=== PATIENT | female | born 1960 | race African-American/Black ===

== ENCOUNTER 2016-12-03 20:47 | Emergency (ER) | payer OTHER ==
[~2016-12-03] VITALS: Ht 170.2 cm; Wt 54.4 kg
[2016-12-03] MEDS ORDERED: SODIUM CHLORIDE 0.9% 1,000 ML IV ONE ×2 (21:15→23:45)
[2016-12-03] MEDS ORDERED: PROCHLORPERAZINE EDISYLATE 5 MG/ML 2ML VIAL IV ONE (21:15)
[2016-12-03 21:28] LABS: Basophils # (auto) 0 uL; Basophils % (auto) 0.5 % (0.0-2.0); Eosinophils # (auto) 0 uL; Eosinophils % (auto) 0.1 % (0.0-7.0); Hematocrit 39.5 % (36.0-46.0); Lymphocytes # (auto) 1.4 uL; Lymphocytes % (auto) 19.4 % (10.0-50.0); Mean Corpuscular Hemoglobin 27.6 pg (28.0-32.0); Mean Corpuscular Hgb Conc. 32.8 g/dL (32.0-36.0); Mean Platelet Volume 8.6 fL (7.4-10.4); Monocytes # (auto) 0.2 uL; Monocytes % (auto) 2.1 % (0.0-12.0); Neutrophils # (auto) 5.7 uL; Neutrophils % (auto) 77.9 % (37.0-80.0); Platelet Count (auto) 403 10^3/uL (140-450); White Blood Cell 7.3 10^3/uL (4.4-10.8)
[2016-12-03 22:19] LABS: Potassium 3.5 mmol/L (3.5-5.1)
[2016-12-03 22:26] LABS: Albumin 4.9 g/dL (3.4-5.0); BUN/Creatinine Ratio 10.1; Calcium 9.6 mg/dL (8.5-10.1)
[2016-12-03 22:29] LABS: Bilirubin, Total 0.7 mg/dL (0.2-1.0)
[2016-12-03] MEDS ORDERED: FAMOTIDINE (10MG/ML) 2ML VL IV ONE (23:45)
[2016-12-03] MEDS ORDERED: NALBUPHINE HCL 10 MG/1ml INJECTION IV ONE (23:45)
[2016-12-04] MEDS ORDERED: ONDANSETRON HCL 4 MG/2 ML VIAL ONE (00:15)
[2016-12-04 00:41] LABS: Urine RBC None Seen /hpf (0 - 4)
[2016-12-04] MEDS ORDERED: ONDANSETRON HCL 4 MG/2 ML VIAL IV ONE (00:45)
[2016-12-04 00:56] LABS: Urine Bilirubin Negative (Negative); Urine Blood Negative /uL (Negative); Urine Color Yellow (Yellow); Urine Glucose TRACE mg/dL (Normal); Urine Nitrite Negative (Negative); Urine Squamous Epithelial Cell FEW /hpf (<5); Urine Urobilinogen Normal (Negative)
[2016-12-04 01:10] LABS: Urine Ketone 1+ (Negative)
[2016-12-04 02:25] VITALS: BP 200/124
[2016-12-04] MEDS ORDERED: PROMETHAZINE HCL 25 MG/ML 1ML ONE (03:27)
[2016-12-04] MEDS ORDERED: PROMETHAZINE HCL 25 MG/ML 1ML IV ONE (03:45)
== END 2016-12-04 06:18 | disposition home or self-care (01) ==
LOC: EDBD 20:47 → ER 20:55
DX: K52.9 Noninfective gastroenteritis and colitis, unspecified (principal); F19.10 Other psychoactive substance abuse, uncomplicated
CPT/HCPCS: 36415; 74176; 80053; 81001; 82150; 83690; 85025; 93005; 96361; 96374; 96375; 99285; G0434; J0780; J2300; J2405; J2550; J3490; J7030

== ENCOUNTER 2016-12-06 15:32 | Emergency (ER) | payer OTHER ==
[~2016-12-06] VITALS: Ht 154.9 cm; Wt 54.4 kg
[2016-12-06] MEDS ORDERED: ONDANSETRON ODT 4 MG TAB PO ONE (16:30)
[2016-12-06] MEDS ORDERED: NALBUPHINE HCL 10 MG/1ml INJECTION IV ONE (18:45)
[2016-12-06 20:23] LABS: Basophils # (auto) 0 uL; Basophils % (auto) 0.5 % (0.0-2.0); Eosinophils # (auto) 0 uL; Eosinophils % (auto) 0.3 % (0.0-7.0); Hemoglobin 13.1 g/dL (12.2-16.2); Lymphocytes # (auto) 1.7 uL; Lymphocytes % (auto) 17.5 % (10.0-50.0); Mean Corpuscular Hemoglobin 27.3 pg (28.0-32.0); Mean Corpuscular Hgb Conc. 32.9 g/dL (32.0-36.0); Mean Corpuscular Volume 82.9 fL (80.0-100.0); Monocytes # (auto) 0.7 uL; Monocytes % (auto) 6.7 % (0.0-12.0); Neutrophils # (auto) 7.4 uL; Platelet Count (auto) 381 10^3/uL (140-450); Red Cell Distribution Width 14.8 % (11.6-16.0); White Blood Cell 9.8 10^3/uL (4.4-10.8)
[2016-12-06 20:42] VITALS: BP 119/77
[2016-12-06 20:43] LABS: Albumin 4.5 g/dL (3.4-5.0); Anion Gap 9 (5-15); Aspartate Aminotransferase 13 U/L (15-37); BUN/Creatinine Ratio 13.7; Blood Urea Nitrogen 17 mg/dL (7-18); Calcium 8.8 mg/dL (8.5-10.1); Carbon Dioxide 28 mmol/L (21-32); Chloride 102 mmol/L (98-107); GFR African American 57 mL/min; GFR Non-African American 47 mL/min; Glucose 104 mg/dL (74-106); Potassium 3.4 mmol/L (3.5-5.1); Sodium 139 mmol/L (136-145)
[2016-12-06 20:48] LABS: Alkaline Phosphatase 59 U/L (45-117); Bilirubin, Total 0.6 mg/dL (0.2-1.0); Total Protein 8.3 g/dL (6.4-8.2)
[2016-12-06] MEDS ORDERED: POTASSIUM CHL 20 Meq TABLET PO ONE (21:00)
== END 2016-12-06 21:46 | disposition home or self-care (01) ==
LOC: ER 15:32 → EDBD 15:32 → ER 21:46
DX: K21.9 Gastro-esophageal reflux disease without esophagitis (principal)
CPT/HCPCS: 36415; 71020; 76705; 80053; 84484; 85025; 93005; 96374; 99285; J2300; Q0162

== ENCOUNTER 2017-01-18 11:19 | Emergency (ER) | payer OTHER ==
[~2017-01-18] VITALS: Ht 157.5 cm; Wt 59.0 kg
[2017-01-18 12:07] VITALS: BP 143/85
== END 2017-01-18 12:37 | disposition home or self-care (01) ==
LOC: ER 12:02
DX: H66.92 Otitis media, unspecified, left ear (principal)

== ENCOUNTER 2017-01-31 09:25 | Inpatient (IN) | payer OTHER ==
[~2017-01-31] VITALS: Ht 157.5 cm; Wt 58.7 kg
[2017-01-31 10:00] LABS: Basophils # (auto) 0 uL; Basophils % (auto) 0.2 % (0.0-2.0); Eosinophils # (auto) 0 uL; Hematocrit 40.9 % (36.0-46.0); Hemoglobin 13.6 g/dL (12.2-16.2); Lymphocytes # (auto) 1.3 uL; Lymphocytes % (auto) 13.6 % (10.0-50.0); Mean Corpuscular Hemoglobin 27.2 pg (28.0-32.0); Mean Corpuscular Hgb Conc. 33.3 g/dL (32.0-36.0); Mean Corpuscular Volume 81.6 fL (80.0-100.0); Mean Platelet Volume 8.2 fL (7.4-10.4); Monocytes # (auto) 0.2 uL; Monocytes % (auto) 1.8 % (0.0-12.0); Neutrophils % (auto) 84.4 % (37.0-80.0); Platelet Count (auto) 461 10^3/uL (140-450); Red Cell Distribution Width 15.6 % (11.6-16.0); White Blood Cell 9.5 10^3/uL (4.4-10.8)
[2017-01-31 10:19] LABS: Albumin 4.8 g/dL (3.4-5.0); BUN/Creatinine Ratio 11.6; Bilirubin, Total 0.8 mg/dL (0.2-1.0); Calcium 9.9 mg/dL (8.5-10.1); Potassium 3.6 mmol/L (3.5-5.1); Total Protein 9.4 g/dL (6.4-8.2)
[2017-01-31] MEDS ORDERED: PANTOPRAZOLE SODIUM 40 MG/10 ML VIAL IV ONE (11:15)
[2017-01-31] MEDS ORDERED: LIDOCAINE VISCOUS 2% 15ML UD PO ONE (11:15)
[2017-01-31] MEDS ORDERED: ALUM & MAG HYDROX-SIMETH LIQ(MAALOX) 30 ML PO ONE (11:15)
[2017-01-31] MEDS ORDERED: cloNIDine HCL 0.1 MG TAB PO ONE (11:15)
[2017-01-31] MEDS ORDERED: DONNATAL 5ml ORAL Elix (BELLADONNA ALK-PHENOBARB) PO ONE (11:15)
[2017-01-31] MEDS ORDERED: HYDROmorphone HCL 2 MG/ML VL IV ONE (11:15)
[2017-01-31] MEDS ORDERED: ONDANSETRON HCL 4 MG/2 ML VIAL IV ONE (11:15)
[2017-01-31] MEDS ORDERED: SODIUM CHLORIDE 0.9% 1,000 ML IV ONE (11:15)
[2017-01-31 11:32] LABS: Urine Bilirubin Negative (Negative); Urine Blood TRACE /uL (Negative); Urine Color Yellow (Yellow); Urine Glucose Normal (Normal); Urine Hyaline Cast FEW /lpf (0 - 2); Urine Ketone Negative (Negative); Urine Mucus FEW (None Seen); Urine Nitrite Negative (Negative); Urine RBC 3 /hpf (0 - 4); Urine Squamous Epithelial Cell FEW /hpf (<5); Urine Urobilinogen Normal (Negative)
[2017-01-31 11:47] LABS: Amylase 92 U/L (25-115)
[2017-01-31] MEDS ORDERED: ACETAMINOPHEN 500 MG TAB PO PRN (13:45)
[2017-01-31] MEDS ORDERED: LORazepam 0.5 MG TAB PO PRN (13:45)
[2017-01-31] MEDS: FAMOTIDINE (10MG/ML) 2ML VL IV SCH (14:23)
[2017-01-31] MEDS: SODIUM CHLORIDE 0.9% 1,000 ML IV SCH (14:30)
[2017-01-31] MEDS ORDERED: MORPHINE SULF INJ 2 MG/ML SYRINGE 1ML IV PRN (14:45)
[2017-01-31] MEDS ORDERED: cefTRIAXone 1GM/50ML D5W 50 ML IV ONE (14:45)
[2017-01-31] MEDS ORDERED: NITROGLYCERIN 0.4 MG SL TAB SL PRN (14:45)
[2017-01-31] MEDS: HYDROcodone-ACET 5/325MG TAB PO PRN ×2 (14:56→21:45)
[2017-01-31 18:10] VITALS: BP 128/88
[2017-01-31] MEDS ORDERED: OMEP20CA5 PO (18:58)
[2017-01-31] MEDS ORDERED: ONDA8TAB6 PO ×2 (18:58→18:59)
[2017-01-31] MEDS ORDERED: NOR5T PO (18:58)
[2017-01-31] MEDS: MORPHINE SULF INJ 2 MG/ML SYRINGE 1ML IV PRN ×2 (19:00→23:45)
[2017-01-31 20:00] VITALS: BP 124/82
[2017-01-31] MEDS: TEMAZEPAM 15 MG CAP PO PRN (21:45)
[2017-01-31 22:00] VITALS: BP 126/82
[2017-01-31 22:13] VITALS: BP 126/82
[2017-02-01] MEDS: FAMOTIDINE (10MG/ML) 2ML VL IV SCH ×2 (00:42→15:11)
[2017-02-01 05:00] VITALS: BP 145/92
[2017-02-01] MEDS: MORPHINE SULF INJ 2 MG/ML SYRINGE 1ML IV PRN (05:05)
[2017-02-01] MEDS: PROMETHAZINE HCL 25 MG/ML 1ML IV PRN ×4 (05:23→20:36)
[2017-02-01] MEDS: SODIUM CHLORIDE 0.9% 1,000 ML IV SCH ×3 (05:24→19:43)
[2017-02-01 07:27] LABS: Albumin 4.2 g/dL (3.4-5.0); BUN/Creatinine Ratio 14.9; Bilirubin, Total 1.1 mg/dL (0.2-1.0); Calcium 8.9 mg/dL (8.5-10.1); Potassium 3.6 mmol/L (3.5-5.1); Total Protein 8.1 g/dL (6.4-8.2)
[2017-02-01 08:00] VITALS: BP 167/113
[2017-02-01 08:25] VITALS: BP_SYST 125; BP_SYST 167; BP_DIAS 113; BP_DIAS 73
[2017-02-01] MEDS: cefTRIAXone 1GM/50ML D5W 50 ML IV SCH (10:02)
[2017-02-01] MEDS: HYDROmorphone HCL 2 MG/ML VL IV PRN ×3 (10:53→20:36)
[2017-02-01 12:22] VITALS: BP 160/89
[2017-02-01 17:46] VITALS: BP 135/86
[2017-02-01 21:03] VITALS: BP 130/84
[2017-02-01] MEDS: TEMAZEPAM 15 MG CAP PO PRN (22:28)
[2017-02-01] MEDS: chlorproMAZINE HCL 25 MG TAB PO PRN (22:28)
[2017-02-02] MEDS: HYDROmorphone HCL 2 MG/ML VL IV PRN ×4 (02:21→20:04)
[2017-02-02] MEDS: FAMOTIDINE (10MG/ML) 2ML VL IV SCH (02:22)
[2017-02-02] MEDS: PROMETHAZINE HCL 25 MG/ML 1ML IV PRN ×4 (02:22→20:04)
[2017-02-02] MEDS: SODIUM CHLORIDE 0.9% 1,000 ML IV SCH ×2 (02:29→17:27)
[2017-02-02 04:38] VITALS: BP 146/92
[2017-02-02] MEDS: cefTRIAXone 1GM/50ML D5W 50 ML IV SCH (07:52)
[2017-02-02] MEDS: chlorproMAZINE HCL 25 MG TAB PO PRN (07:52)
[2017-02-02 08:00] VITALS: BP 132/87
[2017-02-02 09:00] VITALS: BP 132/87
[2017-02-02 13:00] VITALS: BP 130/93
[2017-02-02] MEDS: PANTOPRAZOLE SODIUM 40 MG/10 ML VIAL IV SCH (14:20)
[2017-02-02 17:00] VITALS: BP 152/104
[2017-02-02 21:04] VITALS: BP 138/91
[2017-02-02] MEDS: TEMAZEPAM 15 MG CAP PO PRN (21:48)
[2017-02-03] MEDS: SODIUM CHLORIDE 0.9% 1,000 ML IV SCH ×3 (01:43→23:30)
[2017-02-03] MEDS: PROMETHAZINE HCL 25 MG/ML 1ML IV PRN ×5 (02:54→23:31)
[2017-02-03] MEDS: HYDROmorphone HCL 2 MG/ML VL IV PRN ×5 (02:54→23:31)
[2017-02-03 05:00] VITALS: BP 139/85
[2017-02-03 07:39] VITALS: BP 145/100
[2017-02-03 08:00] VITALS: BP 145/100
[2017-02-03] MEDS: cefTRIAXone 1GM/50ML D5W 50 ML IV SCH (09:47)
[2017-02-03] MEDS: PANTOPRAZOLE SODIUM 40 MG/10 ML VIAL IV SCH (09:47)
[2017-02-03 12:33] VITALS: BP 130/97
[2017-02-03 16:05] VITALS: BP 167/87
[2017-02-03 21:55] VITALS: BP 135/78
[2017-02-03] MEDS: chlorproMAZINE HCL 25 MG TAB PO PRN (23:30)
[2017-02-03] MEDS: PANTOPRAZOLE 40 MG TAB PO SCH (23:36)
[2017-02-04] MEDS: TEMAZEPAM 15 MG CAP PO PRN ×2 (00:08→23:23)
[2017-02-04] MEDS: PROMETHAZINE HCL 25 MG/ML 1ML IV PRN ×4 (04:53→22:08)
[2017-02-04] MEDS: HYDROmorphone HCL 2 MG/ML VL IV PRN ×4 (04:53→22:08)
[2017-02-04 05:26] VITALS: BP 148/108
[2017-02-04 06:37] LABS: Albumin 3.5 g/dL (3.4-5.0); BUN/Creatinine Ratio 8.5; Calcium 8.7 mg/dL (8.5-10.1); Potassium 3.8 mmol/L (3.5-5.1)
[2017-02-04 06:44] LABS: Bilirubin, Total 0.4 mg/dL (0.2-1.0); Total Protein 7.1 g/dL (6.4-8.2)
[2017-02-04 08:00] VITALS: BP 130/86
[2017-02-04 08:24] LABS: INR 0.98 (0.9-1.15); Partial Thromboplastin Time 27.1 sec (22.64-33.71); Prothrombin Time 10.6 sec (9.37-12.3)
[2017-02-04] MEDS ORDERED: SODIUM CHLORIDE LOCK 10 ML ONE (08:29)
[2017-02-04] MEDS ORDERED: LIDOCAINE VISCOUS 2% 15ML UD ONE (08:29)
[2017-02-04] MEDS ORDERED: diphenhdrAMINE HCL 50 MG/1 ML VL ONE (08:29)
[2017-02-04 09:00] VITALS: BP 130/86
[2017-02-04] MEDS: PANTOPRAZOLE 40 MG TAB PO SCH ×2 (10:00→21:40)
[2017-02-04] MEDS: SODIUM CHLORIDE 0.9% 1,000 ML IV SCH ×2 (10:05→17:57)
[2017-02-04 13:00] VITALS: BP 135/70
[2017-02-04] MEDS: MIDAZOLAM HCL 5 MG/ML-1ML VIAL ONE ×3 (14:30→14:37)
[2017-02-04] MEDS: fentaNYL CITRATE 100 MCG/2 ML VL ONE ×2 (14:30→14:33)
[2017-02-04 17:00] VITALS: BP 155/103
[2017-02-04 22:00] VITALS: BP 142/90
[2017-02-05] MEDS: HYDROmorphone HCL 2 MG/ML VL IV PRN ×3 (02:24→11:38)
[2017-02-05] MEDS: PROMETHAZINE HCL 25 MG/ML 1ML IV PRN ×3 (02:25→11:38)
[2017-02-05] MEDS: SODIUM CHLORIDE 0.9% 1,000 ML IV SCH ×2 (03:43→13:43)
[2017-02-05 05:00] VITALS: BP 131/81
[2017-02-05 09:00] VITALS: BP 148/95
[2017-02-05] MEDS: PANTOPRAZOLE 40 MG TAB PO SCH (11:36)
[2017-02-05 13:00] VITALS: BP 154/83
[2017-02-05] MEDS: HYDROcodone-ACET 5/325MG TAB PO PRN (15:50)
[2017-02-05 16:15] VITALS: BP 172/121
== END 2017-02-05 17:15 | disposition home or self-care (01) | DRG 445 ==
LOC: EDBD 09:25 → ER 09:25 → TELE 09:26 → TELE-EAST 17:56 → EAST 02-03 21:35
PROVIDERS: ADMIT Internal Medicine; ATTEND Internal Medicine
PROC: 0DB68ZX Excision of Stomach, Via Natural or Artificial Opening Endoscopic, Diagnostic (ICD-10-PCS; principal; 2017-02-04 14:26)
DX: K82.8 Other specified diseases of gallbladder (principal); S32.049A Unspecified fracture of fourth lumbar vertebra, initial encounter for closed fracture; K21.9 Gastro-esophageal reflux disease without esophagitis; E86.0 Dehydration; H66.92 Otitis media, unspecified, left ear; G89.29 Other chronic pain; M54.9 Dorsalgia, unspecified; M54.30 Sciatica, unspecified side; R73.9 Hyperglycemia, unspecified; X58.XXXA Exposure to other specified factors, initial encounter; F19.10 Other psychoactive substance abuse, uncomplicated; F12.90 Cannabis use, unspecified, uncomplicated; R06.6 Hiccough; Z79.891 Long term (current) use of opiate analgesic; Y93.89 Activity, other specified; Y92.89 Other specified places as the place of occurrence of the external cause; Y99.8 Other external cause status; Z90.721 Acquired absence of ovaries, unilateral
CPT/HCPCS: 36415; 43239; 71010; 74176; 76705; 78226; 80053; 80307; 80320; 81001; 82150; 83690; 84484; 85025; 85610; 85652; 85730; 86141; 93005; 96361; 96365; 96375; 99291; C9113; J0696; J2250; J2405; J3490; Q0161